=== PATIENT | male | born 1985 | race Caucasian/White ===

== ENCOUNTER 2017-09-20 20:13 | Observation (INO) | payer BC ==
[2017-09-20] MEDS ORDERED: 0.9 % SODIUM CHLORIDE 1000ML 1,000 ML IV SCH (20:30)
--- NOTE | 2017-09-20 20:32 | Emergency Department Record ---
History of Present Illness - General Chief Complaint: Suicidal thoughts Stated Complaint: SUICIDAL TENDENCIES Time Seen by Provider: 09/20/17 20:20 Source: Patient, Police Mode of Arrival: Ambulatory Limitations: No limitations - History of Present Illness Initial Comments: 32 yo male presents to ED for evaluation of depression and thoughts of self harm this evening. Police report that they were called to the patient's home as he was intoxicated and agitated over recent departure of his . Per police, patient stated "I don't what to do anymore, I just want to ". Patient reports a history of depression and recent diagnosis of DMII. MD Complaint: Feels depressed Associated Psychiatric Symptoms: Depression Worsens With: Alcohol Context: Recent alcohol abuse, Significant life stressor Associated Symptoms: Denies other symptoms Treatments Prior to Arrival: None - Jaimie Coma Scale Eye Response: (4) Open spontaneously Motor Response: (6) Obeys commands Verbal Response: (5) Oriented [place] Total: 15 - Related Data Allergies Allergy/AdvReac Type Severity Reaction Status Date / Time Penicillins Allergy Intermediate HIVES Verified 09/20/17 20:16 Review of Systems Constitutional: Denies: Chills, Fever, Malaise, Night sweats Eyes: Denies: Eye discharge, Eye pain ENT: Denies: Congestion, Ear pain, Epistaxis Respiratory: Denies: Cough, Dyspnea Cardiovascular: Denies: Chest pain, Dyspnea on exertion Endocrine: Denies: Fatigue, Heat or cold intolerance Gastrointestinal: Denies: Abdominal pain, Nausea, Vomiting Genitourinary: Denies: Incontinence, Retention Musculoskeletal: Denies: Arthralgia, Back pain, Gout, Joint swelling Skin: Denies: Bruising, Change in color Neurological: Denies: Abnormal gait, Confusion, Headache, Tingling, Tremors Psychiatric: Denies: Anxiety Hematological/Lymphatic: Denies: Anemia, Blood Clots Physical Exam - General General Appearance: Alert, Oriented x3, Cooperative, Mild distress, Other (Mild- moderate clinical intoxication) Limitations: No limitations - Head Head exam: Atraumatic, Normocephalic, Normal inspection Head exam detail: negative: Abrasion, Contusion, Rockwell's sign, General tenderness, Hematoma, Laceration - Eye Eye exam: Normal appearance, Other (Injected sclera bilaterally). negative: Conjunctival injection, Periorbital swelling, Periorbital tenderness, Scleral icterus - ENT Ear exam: negative: Auricular hematoma, Auricular trauma Nasal Exam: negative: Active bleeding, Discharge, Dried blood, Foreign body Mouth exam: negative: Drooling, Laceration, Muffled voice, Tongue elevation - Neck Neck exam: Normal inspection. negative: Meningismus, Tenderness - Respiratory Respiratory exam: Normal lung sounds bilaterally. negative: Respiratory distress, Rhonchi, Stridor - Cardiovascular Cardiovascular Exam: Normal rhythm, Normal heart sounds, Tachycardia - GI/Abdominal GI/Abdominal exam: Soft. negative: Rebound, Rigid, Tenderness - Rectal Rectal exam: Deferred - exam: Deferred - Extremities Extremities exam: Normal inspection. negative: Calf tenderness, Pedal edema, Tenderness - Back Back exam: Denies: CVA tenderness (R), CVA tenderness (L) - Neurological Neurological exam: Alert, Normal gait, Oriented X3 - Psychiatric Psychiatric exam: Depressed - Skin Skin exam: Normal color. negative: Abrasion Type of lesion: negative: abrasion Course - Reevaluation(s) Reevaluation #1: 09/20/17 21:02 Laboratory studies were reviewed: CO2 20 AG 21 Glucose 406 Alcohol 0.197. IVFs ordered to infuse, will obtain Venous pH and serum ketones. Reevaluation #2: 09/20/17 21:44 Venous pH 7.4 Acetone: Negative Case was discussed with Caty, will admit for glucose control and consultation with social research assistant in the AM. Patient adamantly denies thoughts of self harm, suicidal ideation. Patient reports that he was upset and intoxicated, but does not appear to be a significant threat to himself on my examination. Medical Decision Making - Lab Data Result diagrams: 09/20/17 20:25 09/20/17 20:25 Disposition Disposition: Admit Clinical Impression: Hyperglycemia without ketosis Disposition: Still a Patient at [facility] Decision to Admit: Admit from ER Decision to Admit Date: 09/20/17 Decision to Admit Time: 21:47 Condition: (2) Stable Forms: Patient Portal Access Time of Disposition: 21:47 Quality - Quality Measures Quality Measures: N/A - Blood Pressure Screening Does Patient Have Any of the Following: No Blood Pressure Classification: Pre-Hypertensive BP Reading Systolic Measurement: 125 Diastolic Measurement: 65 Screening for High Blood Pressure: < Pre-Hypertensive BP, F/U Documented > [ [id number]] Pre-Hypertensive Follow-up Interventions: Referral to alternative/primary care provider.
[2017-09-20 20:35] LABS: BASO % 0.5 % (0-6); EOS % 0.7 % (0-6); GRAN % 62.7 % (47-80); HEMATOCRIT 45.2 % (42.0-52.0); HEMOGLOBIN 16.9 gm/dl (14.0-18.0); LYMPH % 31.6 % (16-45); MEAN CELL VOLUME 86.9 fl (81-97); MEAN CORPUSCULAR HEMOGLOBIN 32.5 pg (27-33); MEAN CORPUSCULAR HGB CONC 37.4 g/dl (32-36); MEAN PLATELET VOLUME 10.3 fl (7.4-10.4); MONO % 4.5 % (0-9); PLATELET COUNT 283 K/uL (130-400); RED CELL DISTRIBUTION WIDTH 12.4 % (11.5-14.5); WHITE BLOOD COUNT W/O DIFF 5.8 K/uL (4.2-12.2)
[2017-09-20 20:46] LABS: BLOOD UREA NITROGEN 7 mg/dL (6-20)
[2017-09-20 20:47] LABS: ALCOHOL 0.197 g/dL (0-0.010); CREATININE 0.7 mg/dL (0.7-1.2); EST GLOMERULAR FILTRATION RATE > 60 mL/min; TOTAL PROTEIN 7.5 g/dL (6.6-8.7)
[2017-09-20 20:49] LABS: GLUCOSE,RANDOM 406 mg/dL (74-109)
[2017-09-20 20:52] LABS: ACETAMINOPHEN < 5.0 ug/mL (10.0-30.0); ALB/GLOB RATIO 2.1 (1.1-1.8); ALBUMIN 5.1 g/dL (4.0-5.0); ALKALINE PHOSPHATASE 80 U/L (40-129); ALT/SGPT 17 U/L (<41); AST/SGOT 15 U/L (10.0-50.0); SALICYLATE < 0.3 mg/dL (2.8-20)
[2017-09-20] MEDS ORDERED: HUMULIN R 100 UNIT/ML VIAL IV ONE (20:58)
[2017-09-20 21:02] LABS: THYROID STIMULATING HORMONE 2.49 uIU/mL (0.270-4.20)
[2017-09-20 21:03] LABS: ACETONE,SERUM NEGATIVE (NEGATIVE)
[2017-09-20] MEDS ORDERED: ACETAMINOPHEN 500 MG TABLET PO PRN (22:44)
[2017-09-20] MEDS ORDERED: ESCITALOPRAM 10 MG TABLET PO SCH (22:44)
[2017-09-20] MEDS ORDERED: 0.9 % SODIUM CHLORIDE 1000ML 1,000 ML IV PRN (22:44)
[2017-09-20 23:53] LABS: AMPHETAMINE SCREEN URINE NOT DETECTED; BARBITURATE SCREEN URINE NOT DETECTED; BENZODIAZEPINE SCREEN URINE NOT DETECTED; COCAINE SCREEN URINE NOT DETECTED; METHADONE SCREEN URINE NOT DETECTED; METHAMPHETAMINE SCREEN NOT DETECTED; OPIATE SCREEN URINE NOT DETECTED; OXYCODONE SCREEN URINE NOT DETECTED; PHENCYCLIDINE SCREEN URINE NOT DETECTED; PROPOXYPHENE SCREEN URINE NOT DETECTED; THC SCREEN URINE NOT DETECTED; TRICYCLIC ANTIDEPRESSANT SCRN NOT DETECTED
--- NOTE | 2017-09-21 07:53 | RADIOLOGY REPORT ---
EXAM: RIGHT HAND HISTORY: PUNCH INJURY WITH MILD SOFT TISSUE SWELLING RIGHT HAND. TECHNIQUE: Three views of the right hand were obtained. Comparison: None. Encounter: Initial. FINDINGS: There is mild soft tissue swelling involving the second and third fingers in particular. No definite fracture or dislocation involving the right hand identified. IMPRESSION: 1. MILD SOFT TISSUE SWELLING INVOLVING THE SECOND AND THIRD FINGERS. 2. NO DEFINITE FRACTURE OF THE RIGHT HAND IDENTIFIED. JOB NUMBER: [id number] MTDD
--- NOTE | 2017-09-21 08:37 | History & Physical ---
History of Present Illness - Date of Service Date of Service for History & Physical: 09/21/17 - History of Present Illness Admitting Diagnosis: Hyperglycemia. Alcohol intoxication History of Present Illness: Ulises Yost is a 32 y/o male brought to ED by [facility] for acute intoxication and verbalizing thoughts of self-harm. The neighbors called the police as he was in his front yard yelling and waving a sword around and had punched a wall. He reports depression regarding recent separation from and recent diagnosis of DM-2. He has not been taking long acting Metformin as he was not able to afford it. Does have a glucosemeter at home and checks his blood sugars "every once in a while". When he does check blood sugars they are usually 400-500. Is not following a diabetic diet. Has had a long history of depression and was acutely exacerbated about 6 years ago with the of his 2 year old son- was accidental, son was caught between the bed and his wall with subsequent of his grandmother 2 months later Also, his and him recently about 1.5 weeks ago. He was hospitalized one time before about 6 years ago after having thoughts of self harm while drinking excessive amounts of alcohol. Was taken to [facility] at that time and sent to an inpatient facility. He was taking antidepressants but has been off them for a couple years. Was seen by PCP about 2 weeks ago and started on Lexapro 10mg. Has never seen anyone in the community for grief counselling or for depression. Reports he drinks usually a 16oz beer daily but also "depends on the day". Has a hard time sleeping and will drink more if he is unable to sleep. Has tried Melatonin 3,5,10 mg but has not helped. Does have a job. While in ED blood alcohol 0.197, blood glucose 406 with negative ketones, AG 21 , CO2 20, VBG pH 7.4. He was acutely intoxicated upon arrival but continued to deny active self-harm plan but reports hopelessness regarding situation. Has never sought psychiatric services. Will admit to medically clear him for potential transfer to inpatient psych facility after social work consult and overnight observation. 09/21/17 0830- no further reports of verbalizing self harm, does not have a plan for harming self. Is alert and appropriate this morning. Upon questioning of event he held appropriate eye contact, speech clear and coherent, thoughts appropriate for situation. Is regretful of his behavior last night. Denies having a plan to harm himself, has not desire to harm self but does admit to his mood feeling very low. Has been in consistent mood since admission. Admits to needing help with his depression and is willing and committed to follow up as an outpatient. He likely has PTSD from the of his son and grandmother with history of underlying depression. Travel Screening - Travel/Exposure Within Last 30 Days Have you traveled within the last 30 days?: No - Travel/Exposure Within Last Year Have you traveled outside the [place] in the last year?: No - Additonal Travel Details Have you been exposed to anyone with a communicable illness?: No - Travel Symptoms Symptom Screening: None Review of Systems Constitutional: Denies: Chills, Fever, Malaise, Night sweats Eyes: Denies: Eye discharge, Eye pain ENT: Denies: Congestion, Ear pain, Epistaxis Respiratory: Denies: Cough, Dyspnea Cardiovascular: Denies: Chest pain, Dyspnea on exertion Endocrine: Denies: Fatigue, Heat or cold intolerance Gastrointestinal: Denies: Abdominal pain, Nausea, Vomiting Genitourinary: Denies: Incontinence, Retention Musculoskeletal: Denies: Arthralgia, Back pain, Gout, Joint swelling Skin: Denies: Bruising, Change in color Neurological: Denies: Abnormal gait, Confusion, Headache, Tingling, Tremors Psychiatric: Denies: Anxiety Hematological/Lymphatic: Denies: Anemia, Blood Clots Past Medical History - SOCIAL HISTORY Smoking Status: Current every day smoker Alcohol Use: Heavy Alcohol Use Comment: 2-3 beers daily Drug Use: None - RESPIRATORY Hx Respiratory Disorders: Yes Hx Asthma: Yes - CARDIOVASCULAR Hx Cardio Disorders: Yes Hx Hypotension: Yes Comment:: high cholesterol - NEURO Hx Neuro Disorders: No - GI Hx GI Disorders: No - Hx Genitourinary Disorders: No - ENDOCRINE Hx Endocrine Disorders: Yes Hx Diabetes: Yes (type 2; diagnosed couple yeats ago per patient) Hx Thyroid Disease: No - MUSCULOSKELETAL Hx Musculoskeletal Disorders: No - PSYCH Hx Psych Problems: Yes Hx Depression: Yes Hx Suicide Attempt: Yes (10 years ago approximate per patient) - HEMATOLOGY/ONCOLOGY Hx Hematology/Oncology Disorders: No Family Medical History Any Significant Family History?: No Hx Diabetes: Grandparents H&P Meds/Allergies - Allergies Allergies: Allergies Allergy/AdvReac Type Severity Reaction Status Date / Time Penicillins Allergy Intermediate HIVES Verified 09/20/17 20:16 - Active Medications Active Medications: Current Medications Acetaminophen (Tylenol 500mg Tab) 1,000 mg PO Q6H PRN PRN Reason: PAIN - MILD(1-4)/FEVER Escitalopram Oxalate (Lexapro) 10 mg PO QHS YOLANDA Last Admin: 09/20/17 23:32 Dose: 10 mg Sodium Chloride () 1,000 mls @ 125 mls/hr IV .Q8H PRN PRN Reason: LARGE VOLUME IV Last Admin: 09/20/17 22:35 Dose: 125 mls/hr Physical Exam - Vital Signs Vital Signs: Vital Signs - Last 24 Hrs Temp Pulse Pulse Resp BP BP BP 09/21/17 06:44 98.7 F 79 16 119/67 09/20/17 22:44 97.7 F 91 H 16 121/85 09/20/17 22:20 98.6 F 109 H 18 124/70 09/20/17 20:19 129 H 18 125/65 Pulse Ox 09/21/17 06:44 99 09/20/17 22:44 100 09/20/17 22:20 98 09/20/17 20:19 98 - General General Appearance: Alert, Oriented x3, Cooperative, No acute distress Limitations: No limitations - Head Head exam: Atraumatic, Normocephalic, Normal inspection Head exam detail: negative: Abrasion, Contusion, Rockwell's sign, General tenderness, Hematoma, Laceration - Eye Eye exam: Normal appearance, PERRL. negative: Conjunctival injection, Periorbital swelling, Periorbital tenderness, Scleral icterus - ENT Ear exam: negative: Auricular hematoma, Auricular trauma Nasal Exam: negative: Active bleeding, Discharge, Dried blood, Foreign body Mouth exam: negative: Drooling, Laceration, Muffled voice, Tongue elevation - Neck Neck exam: Normal inspection. negative: Meningismus, Tenderness - Respiratory Respiratory exam: Normal lung sounds bilaterally. negative: Respiratory distress, Rhonchi, Stridor - Cardiovascular Cardiovascular Exam: Normal rhythm, Normal heart sounds - GI/Abdominal GI/Abdominal exam: Soft. negative: Rebound, Rigid, Tenderness - Rectal Rectal exam: Deferred - exam: Deferred - Extremities Extremities exam: Normal inspection, Joint swelling (right hand generalized soft tissue swelling, mostly over 2nd and 3rd knuckles, mild ecchymosis). negative: Calf tenderness, Pedal edema, Tenderness - Back Back exam: Denies: CVA tenderness (R), CVA tenderness (L) - Neurological Neurological exam: Alert, Normal gait, Oriented X3 - Psychiatric Psychiatric exam: Depressed, Flat affect. negative: Agitated, Anxious, Manic, Suicidal ideation - Skin Skin exam: Normal color. negative: Abrasion Type of lesion: negative: abrasion Results - Labs Result Diagrams: 09/20/17 20:25 09/20/17 20:25 Labs Last 24 Hours: Laboratory Results - last 24 hr 09/20/17 09/20/17 09/20/17 20:25 20:25 21:03 WBC 5.8 RBC 5.20 Hgb 16.9 Hct 45.2 MCV 86.9 MCH 32.5 MCHC 37.4 H RDW 12.4 Plt Count 283 MPV 10.3 Gran % 62.7 Lymphocytes % 31.6 Monocytes % 4.5 Eosinophils % 0.7 Basophils % 0.5 VBG pH 7.40 Sodium 139 Potassium 4.0 Chloride 98 Carbon Dioxide 20.0 L Anion Gap 21.0 H BUN 7 Creatinine 0.7 Estimated GFR > 60 POC Glucose Random Glucose 406 H Calcium 9.6 Total Bilirubin 0.50 AST 15 ALT 17 Alkaline Phosphatase 80 Total Protein 7.5 Albumin 5.1 H Globulin 2.4 Albumin/Globulin Ratio 2.1 H TSH 2.49 Salicylates < 0.3 L Urine Opiates Screen Ur Oxycodone Screen Urine Methadone Screen Ur Propoxyphene Screen Acetaminophen < 5.0 L Ur Barbituates Screen Ur Tricyclics Screen Ur Phencyclidine Scrn Ur Amphetamine Screen U Methamphetamines Scrn U Benzodiazepines Scrn Urine Cocaine Screen Urine Cannabis Screen Ethyl Alcohol 0.197 H Acetone, Qual Negative 09/20/17 09/21/17 09/21/17 23:53 07:00 07:30 WBC RBC Hgb Hct MCV MCH MCHC RDW Plt Count MPV Gran % Lymphocytes % Monocytes % Eosinophils % Basophils % VBG pH Sodium Potassium Chloride Carbon Dioxide Anion Gap BUN Creatinine Estimated GFR POC Glucose Cancelled 258 H Random Glucose Calcium Total Bilirubin AST ALT Alkaline Phosphatase Total Protein Albumin Globulin Albumin/Globulin Ratio TSH Salicylates Urine Opiates Screen Not detected Ur Oxycodone Screen Not detected Urine Methadone Screen Not detected Ur Propoxyphene Screen Not detected Acetaminophen Ur Barbituates Screen Not detected Ur Tricyclics Screen Not detected Ur Phencyclidine Scrn Not detected Ur Amphetamine Screen Not detected U Methamphetamines Scrn Not detected U Benzodiazepines Scrn Not detected Urine Cocaine Screen Not detected Urine Cannabis Screen Not detected Ethyl Alcohol Acetone, Qual VTE H&P Assessment - Risk for VTE Risk for VTE: Yes Risk Level: Moderate Risk Assessment Date: 09/21/17 Risk Assessment Time: 08:37 VTE Orders Placed or Will Be Placed: Yes Plan - Detailed Diagnosis and Plan (1) Acute alcohol intoxication Current Visit: Yes Status: Acute Base Code: F10.929 - ALCOHOL USE, UNSPECIFIED WITH INTOXICATION, UNSPECIFIED Comment: 09/21/17 - Blood alcohol 0.197 - 0.9% NS @ 125ml/hr - observation for withdrawl (2) Thoughts of self harm Current Visit: Yes Status: Acute Base Code: R45.89 - OTHER SYMPTOMS AND SIGNS INVOLVING EMOTIONAL STATE Comment: 09/21/17 - History of depression, currently taking Lexapro 10mg QD - Social work consult today - Will need to be outpatient services of regular and routine psycotherapy for depression and grief reaction - Has had no further thoughts of self harm since arriving to the floor, does not have a plan - 1:1 sitter at bedside (3) Hyperglycemia without ketosis Current Visit: Yes Status: Acute Base Code: R73.9 - HYPERGLYCEMIA, UNSPECIFIED Comment: 09/21/17 - Recent diagnosis of DM, has not been taking Metformin as he was not able to afford it - Chart review shows A1C 12.3 09/09/17, triglycerides 882, cholesterol 289 - Accu checks with sliding scale - Glycemic control - Will start Metformin 500mg BID then increase to 1000mg BID in 1 week - He will need to check FBS at home every day and keep a log for his PCP - Dietary consult (4) Depression Current Visit: Yes Status: Acute Qualifiers: Depression Type: unspecified Qualified Code(s): F32.9 - Major depressive disorder, single episode, unspecified Base Code: F32.9 - MAJOR DEPRESSIVE DISORDER, SINGLE EPISODE, UNSPECIFIED Comment: 09/21/14 - 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 - Lexapro 10mg - will adjust dosing after social work consult to Lexapro 20mg QD - Social work consult - Close observation with recent thoughts of self harm, currently 1:1 sitter - will need a sleep aid to help with insomnia ( he is using alcohol to help him sleep) - will discharge him home on a light sleep aid and plan for follow up with PCP in 1-2 days and follow up with [facility]- may benefit from EMDR (5) DVT prophylaxis Current Visit: Yes Status: Acute Base Code: [id number] - Comment: 09/21/17 - nursing to encourage frequent ambulation (6) Full code status Current Visit: Yes Status: Acute Base Code: Z78.9 - OTHER SPECIFIED HEALTH STATUS Comment: 09/21/17 - full code during this admission
[2017-09-21] MEDS ORDERED: METFORMIN 500 MG TABLET PO SCH (09:15)
[2017-09-21] MEDS ORDERED: HUMULIN R 100 UNIT/ML VIAL SQ SCH (09:15)
--- NOTE | 2017-09-21 11:48 | Discharge Summary ---
Providers Discharge Summary Date: 09/21/17 Date of admission: 09/20/17 22:14 Expected Date of Discharge: 09/21/17 Attending physician: ANDREW DOWNEY Consults: Consult Orders 09/20/17 22:44 Consult - Case Management Now Comment: Reason For Exam: Depression, thoughts of self harm Physical Exam - Vital Signs Vital Signs: Vital Signs - Last 24 Hrs Temp Pulse Pulse Resp BP BP BP 09/21/17 06:44 98.7 F 79 16 119/67 09/20/17 22:44 97.7 F 91 H 16 121/85 09/20/17 22:20 98.6 F 109 H 18 124/70 09/20/17 20:19 129 H 18 125/65 Pulse Ox 09/21/17 06:44 99 09/20/17 22:44 100 09/20/17 22:20 98 09/20/17 20:19 98 - General General Appearance: Alert, Oriented x3, Cooperative, No acute distress Limitations: No limitations - Head Head exam: Atraumatic, Normocephalic, Normal inspection Head exam detail: negative: Abrasion, Contusion, Rockwell's sign, General tenderness, Hematoma, Laceration - Eye Eye exam: Normal appearance, PERRL. negative: Conjunctival injection, Periorbital swelling, Periorbital tenderness, Scleral icterus - ENT Ear exam: negative: Auricular hematoma, Auricular trauma Nasal Exam: negative: Active bleeding, Discharge, Dried blood, Foreign body Mouth exam: negative: Drooling, Laceration, Muffled voice, Tongue elevation - Neck Neck exam: Normal inspection. negative: Meningismus, Tenderness - Respiratory Respiratory exam: Normal lung sounds bilaterally. negative: Respiratory distress, Rhonchi, Stridor - Cardiovascular Cardiovascular Exam: Normal rhythm, Normal heart sounds - GI/Abdominal GI/Abdominal exam: Soft. negative: Rebound, Rigid, Tenderness - Rectal Rectal exam: Deferred - exam: Deferred - Extremities Extremities exam: Normal inspection, Joint swelling (right hand generalized soft tissue swelling, mostly over 2nd and 3rd knuckles, mild ecchymosis). negative: Calf tenderness, Pedal edema, Tenderness - Back Back exam: Denies: CVA tenderness (R), CVA tenderness (L) - Neurological Neurological exam: Alert, Normal gait, Oriented X3 - Psychiatric Psychiatric exam: Depressed, Flat affect. negative: Agitated, Anxious, Manic, Suicidal ideation - Skin Skin exam: Normal color. negative: Abrasion Type of lesion: negative: abrasion Hospitalization - Hospitalization Admission Diagnosis: Hyperglycemia. Alcohol intoxication - Problem List/Discharge Diagnosis (1) Acute alcohol intoxication Current Visit: Yes Status: Acute Base Code: F10.929 - ALCOHOL USE, UNSPECIFIED WITH INTOXICATION, UNSPECIFIED Comment: 09/21/17 - Blood alcohol 0.197 - 0.9% NS @ 125ml/hr - observation for withdrawl - has been stable since admit, no withdrawl, no agitation (2) Thoughts of self harm Current Visit: Yes Status: Acute Base Code: R45.89 - OTHER SYMPTOMS AND SIGNS INVOLVING EMOTIONAL STATE Comment: 09/21/17 - History of depression, currently taking Lexapro 10mg QD, increased to 20mg QD - Social work consult today - Will need to be outpatient services of regular and routine psycotherapy for depression and grief reaction - Has had no further thoughts of self harm since arriving to the floor, does not have a plan - 1:1 sitter at bedside (3) Hyperglycemia without ketosis Current Visit: Yes Status: Acute Base Code: R73.9 - HYPERGLYCEMIA, UNSPECIFIED Comment: 09/21/17 - Recent diagnosis of DM, has not been taking Metformin as he was not able to afford it - Chart review shows A1C 12.3 09/09/17, triglycerides 882, cholesterol 289 - Accu checks with sliding scale - Glycemic control - Will start Metformin 500mg BID then increase to 1000mg BID in 1 week - He will need to check FBS at home every day and keep a log for his PCP - Dietary consult prior to discharge - Will need to follow up with PCP in 2-3 days to initiate VIVI, statin, ASA and further close follow up of very uncontrolled DM-2 - Advised he stop drinking alcohol as this is contributing to his elevated blood sugars (4) Depression Current Visit: Yes Status: Acute Discharge Diagnosis: Depression Type: unspecified Qualified Code(s): F32.9 - Major depressive disorder, single episode, unspecified Base Code: F32.9 - MAJOR DEPRESSIVE DISORDER, SINGLE EPISODE, UNSPECIFIED Comment: 09/21/14 - 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 - Lexapro 10mg - will adjust dosing after social work consult to Lexapro 20mg QD - Social work consult - Close observation with recent thoughts of self harm, currently 1:1 sitter - will need a sleep aid to help with insomnia ( he is using alcohol to help him sleep) - will discharge him home on a light sleep aid and plan for follow up with PCP in 1-2 days and follow up with [facility]- may benefit from EMDR - Has follow up with PCP and 09/24/17 (5) DVT prophylaxis Current Visit: Yes Status: Acute Base Code: [id number] - Comment: 09/21/17 - nursing to encourage frequent ambulation (6) Full code status Current Visit: Yes Status: Acute Base Code: Z78.9 - OTHER SPECIFIED HEALTH STATUS Comment: 09/21/17 - full code during this admission - Hospitalization Course Disposition: Home, Self-Care Hospital Course: Ulises Yost is a 32 y/o male brought to ED by [facility] for acute intoxication and verbalizing thoughts of self-harm. The neighbors called the police as he was in his front yard yelling and waving a sword around and had punched a wall. He reports depression regarding recent separation from and recent diagnosis of DM-2. He has not been taking long acting Metformin as he was not able to afford it. Does have a glucosemeter at home and checks his blood sugars "every once in a while". When he does check blood sugars they are usually 400-500. Is not following a diabetic diet. Has had a long history of depression and was acutely exacerbated about 6 years ago with the of his 2 year old son- was accidental, son was caught between the bed and his wall with subsequent of his grandmother 2 months later Also, his and him recently about 1.5 weeks ago. He was hospitalized one time before about 6 years ago after having thoughts of self harm while drinking excessive amounts of alcohol. Was taken to [facility] at that time and sent to an inpatient facility. He was taking antidepressants but has been off them for a couple years. Was seen by PCP about 2 weeks ago and started on Lexapro 10mg. Has never seen anyone in the community for grief counselling or for depression. Reports he drinks usually a 16oz beer daily but also "depends on the day". Has a hard time sleeping and will drink more if he is unable to sleep. Has tried Melatonin 3,5,10 mg but has not helped. Does have a job. While in ED blood alcohol 0.197, blood glucose 406 with negative ketones, AG 21 , CO2 20, VBG pH 7.4. He was acutely intoxicated upon arrival but continued to deny active self-harm plan but reports hopelessness regarding situation. Has never sought psychiatric services. Will admit to medically clear him for potential transfer to inpatient psych facility after social work consult and overnight observation. 09/21/17 0830- no further reports of verbalizing self harm, does not have a plan for harming self. Is alert and appropriate this morning. Upon questioning of event he held appropriate eye contact, speech clear and coherent, thoughts appropriate for situation. Is regretful of his behavior last night. Denies having a plan to harm himself, has not desire to harm self but does admit to his mood feeling very low. Has been in consistent mood since admission. Admits to needing help with his depression and is willing and committed to follow up as an outpatient. He likely has PTSD from the of his son and grandmother with history of underlying depression. Does have good social support at home from siblings, friends and parents. Does have safety plan in place should he feel or have thoughts of self harming himself Procedures: Imaging and X-Rays 09/20/17 20:43 HAND, RIGHT 3 VIEWS [RAD] Stat Abnormal Labs: Abnormal Lab Results 09/20/17 09/20/17 09/21/17 Range/Units 20:25 20:25 07:30 MCHC 37.4 H (32-36) g/dl Carbon Dioxide 20.0 L (22-29) mmol/L Anion Gap 21.0 H (7-16) POC Glucose 258 H (70-110) mg/dL Random Glucose 406 H (74-109) mg/dL Albumin 5.1 H (4.0-5.0) g/dL Albumin/Globulin Ratio 2.1 H (1.1-1.8) Salicylates < 0.3 L (2.8-20) mg/dL Acetaminophen < 5.0 L (10.0-30.0) ug/mL Ethyl Alcohol 0.197 H (0-0.010) g/dL Condition at Discharge: (2) Stable Discharge Medications - Discharge Medications Prescriptions: Trazodone HCl [Desyrel] 50 mg PO QHS 30 Days tab Metformin HCl [Glucophage Ir] 500 mg PO BIDWM #120 tablet Home Medications: Ambulatory Orders Acetaminophen [Tylenol 500Mg Tab] 1,000 mg PO Q6H PRN tablet 09/21/17 [Last Taken Unknown] Metformin HCl [Glucophage Ir] 500 mg PO BIDWM #120 tablet 09/21/17 [Last Taken Unknown] Trazodone HCl [Desyrel] 50 mg PO QHS 30 Days tab 09/21/17 [Last Taken Unknown] Discharge Plan - Discharge Instructions Activity at Discharge: Increase Activity as Tolerated Diet at Discharge: Regular Diet Additional Instructions: Appointment with MARIS Porter on 09/24 at 10AM at [facility] Appointment with Claudia Mcfarlane NP on at 1040AM at [facility] Quality Measures - Quality Measures Quality Measures: Documentation of Current Medications in Medical Record, Screening for High Blood Pressure and F/U Documented - Current Medications Quality Measure: Measure #130: Documentation of Current Medications Documentation of Current Medications: <Current Medications Documented/Reviewed> [[id number]] - Blood Pressure Screening Quality Measure: Screening for High Blood Pressure and Follow-Up Documented Does Patient Have Any of the Following: No Blood Pressure Classification: Pre-Hypertensive BP Reading Systolic Measurement: 124 Diastolic Measurement: 70 Screening for High Blood Pressure: < Pre-Hypertensive BP, F/U Documented > [ [id number]] Pre-Hypertensive Follow-up Interventions: Follow-up with rescreen every year. - Elder Abuse Suspicion Index EASI Reference Information: Nehemiah STARR, Mario C, Dangelo D, Keith Samaniego.Development and validation of a tool to assist physicians identification of elder abuse: The Elder Abuse Suspicion Index (EASI ). Journal of Elder Abuse and Neglect, 2008; 20 (3): 276-300.
[2017-09-21] MEDS ORDERED: TRAZODONE 50 MG TABLET PO SCH (22:00)
[2017-09-21] MEDS ORDERED: ESCITALOPRAM 10 MG TABLET PO SCH (22:00)
== END 2017-09-21 12:37 | disposition home or self-care (01) ==
LOC: ER 20:13 → MEDSURG 22:14
PROVIDERS: ADMIT Internal Medicine; ATTEND Internal Medicine
DX: R73.9 Hyperglycemia, unspecified (principal); F10.929 Alcohol use, unspecified with intoxication, unspecified; R45.89 Other symptoms and signs involving emotional state; I95.9 Hypotension, unspecified; E78.00 Pure hypercholesterolemia, unspecified; E11.9 Type 2 diabetes mellitus without complications; F32.9 Major depressive disorder, single episode, unspecified; F17.210 Nicotine dependence, cigarettes, uncomplicated
CPT/HCPCS: 82800; 85025; 80053; 36416; 82009; 82948; 84443; 80305; 73130; G0378 ×2; G0480 ×3; 80320; 80329; 96365; 99220; 99285; J7030